=== PATIENT | male | born 1965 | race Caucasian/White ===

== ENCOUNTER → 2020-02-05 | Outpatient (CLI) | payer OTHER ==
--- NOTE | 2020-02-08 10:04 | SLEEPCENT ---
DATE OF PROCEDURE: 02/05/2020 ORDERED BY: Dr. Hernandez Nocturnal polysomnography was performed for evaluation of sleep physiology in this patient with a history of excessive. 9 hours and 8 minutes of data were reviewed. There were 3 hours and 25 minutes of sleep identified. Sleep latency was prolonged at 48 minutes. Rapid eye movement (REM) latency was prolonged at 180 minutes. Sleep architecture showed fragmentation and some poor progression. There were periods of wakefulness resulting in reduced sleep efficiency of 59.5%. The patient's electrocardiogram showed a sinus rhythm with an average heart rate of 65 beats per minute. Electroencephalogram (EEG) showed normal waveforms for awake and sleep. There were 41 respiratory events identified of 10 seconds in duration or greater for an apnea-hypopnea index of 7.7. The events were obstructive, not exclusive to sleep stage. They were more frequent in the supine posture. However, the patient spent the entire night in the supine posture. There was some activity in the limb leads. Limb movement arousal index 2.6. IMPRESSION: Obstructive sleep apnea syndrome (G47.33). Apnea-hypopnea index 7.7. RECOMMENDATIONS: Sleep position retraining for avoidance of the supine posture may be helpful. However, as the patient spent the entire study in the supine posture, it be necessary to encourage return to the sleep disorder center for pressure therapy. In the interim, alcohol and sedative avoidance should be practiced and caution exercised during operation of motor vehicles.
== END ==
LOC: M SLEEP 20:00
PROVIDERS: ATTEND Internal Medicine Pulmonary Disease
DX: G47.33 Obstructive sleep apnea (adult) (pediatric) (principal)

== ENCOUNTER → 2022-07-22 | Outpatient (CLI) | payer OTHER | LOC: M CARPUL 12:06 | PROVIDERS: ATTEND Family Medicine | DX: R06.00 Dyspnea, unspecified (principal) ==

== ENCOUNTER → 2023-02-18 | Outpatient (REF) | LOC: M PLAIMG 09:57 | PROVIDERS: ATTEND Internal Medicine | DX: R06.02 Shortness of breath (principal) ==

== ENCOUNTER 2024-03-24 08:27 | Day surgery (SDC) | payer OTHER ==
[~2024-03-24] VITALS: Ht 195.6 cm; Wt 127.0 kg
[~2024-03-24 08:27] MED LIST: ADVA115A INH; D 1010002 PO; DICL100G10 TOP; DILT240C82 PO; ECOT81TA5 PO; MAGN400C PO; METH-1165 PO; NITR0.4S14 SL; PROA1AER2 IN; THERTAB52 PO; [UNRECOGNIZED DRUG - CODE] PO
[2024-03-24] MEDS: NS 1,000 ML IV ONE (09:02)
[2024-03-24] MEDS ORDERED: propofoL 200 MG/20 ML VIAL As Ordered ONE (10:04)
[2024-03-24 10:07] VITALS: TEMP 99.6
[2024-03-24 10:25] VITALS: BP 139/85; O2SAT 97
== END 2024-03-24 10:34 | disposition home or self-care (01) ==
LOC: M OPP 08:27
PROVIDERS: ATTEND Surgery
DX: Z12.11 Encounter for screening for malignant neoplasm of colon (principal); Z86.010 Personal history of colon polyps; Z80.0 Family history of malignant neoplasm of digestive organs; K64.0 First degree hemorrhoids; I48.91 Unspecified atrial fibrillation; G47.30 Sleep apnea, unspecified; I10 Essential (primary) hypertension; Z79.1 Long term (current) use of non-steroidal anti-inflammatories (NSAID); Z79.51 Long term (current) use of inhaled steroids; Z79.82 Long term (current) use of aspirin; Z79.899 Other long term (current) drug therapy; Z88.1 Allergy status to other antibiotic agents; Z88.8 Allergy status to other drugs, medicaments and biological substances